=== PATIENT | female | born 1995 | race Caucasian/White ===

== ENCOUNTER 2020-01-31 11:03 | Emergency (ER) | payer SELFPAY ==
[2020-01-31 11:19] VITALS: BP 150/120; PULSE 101; RESP 18; TEMP 37; O2SAT 96
--- NOTE | 2020-01-31 11:40 | ED.GENADULT ---
HPI - General Adult General Chief complaint: Upper Respiratory Infection Stated complaint: sore throat Time Seen by Provider: 01/31/20 11:40 Source: patient and RN notes reviewed Mode of arrival: ambulatory Limitations: no limitations History of Present Illness HPI narrative: 24-year-old female presents with complaints of congestion and rhinorrhea for the past 7 days. Zyrtec without relief. Symptoms increased over the past 72 hours with sore throat, fatigue, and nausea without emesis. No high fevers, drooling, neck or throat swelling. Pain is bilateral. Hurts to swallow. Exacerbation factors consist of eating and drinking. Rhinorrhea and nasal congestion. No voice change. No abdominal pain. Tolerating liquids well. Denies chills, dyspnea, difficulty swallowing, jaw pain, dental pain, facial pain, foreign body sensation, and rash. LMP 01/04/20. Remains active. The patient reports she have not been diagnosed with COVID-19. The patient reports she is not waiting for the results of a COVID-19 lab test. Harriett reports she is tested weekly at her place of employment ([employer]) for COVID-19 in which she was NEGATIVE on 01/27/20 and is due to get tested today. The patient reports she do not have fever or weakness. The patient reports she do not have a new or worsening cough or shortness of breath. Denies chest pain. The patient reports she do not have any rhinorrhea, congestion, sore throat, loss of taste, nausea, vomiting, abdominal pain, and diarrhea. Tolerating po intake well. Denies recent traveling. Denies concerns for COVID-19 or exposures been home with limited outdoor exposure except for essential household needs, work, and return home. At this time, patient is not suspected of having COVID-19. Some parts of this dictation were generated by voice recognition software and may contain typographical and/or grammatical inaccuracies. Related Data Allergies Allergy/AdvReac Type Severity Reaction Status Date / Time No Known Drug Allergies Allergy Unknown Verified 01/31/20 11:31 Review of Systems Review of Systems: Narrative: CONSTITUTIONAL: Denies fever, chills, sweats. EYES: Denies visual changes, redness, discharge. ENT: Denies, otalgia. Complains of sore throat, congestion, rhinorrhea CARDIOVASCULAR: Denies chest pain, palpitations, edema. RESPIRATORY: Denies dyspnea, wheezing, cough. GASTROINTESTINAL: Denies abdominal pain, nausea, vomiting, diarrhea. GENITOURINARY: Denies dysuria, hematuria, abnormal discharge. SKIN: Denies rash or itching. MUSCULOSKELETAL: Denies acute back pain, joint pain, or myalgia. NEUROLOGIC: Denies numbness or focal weakness. PSYCHIATRIC: Denies anxiety or depression. All systems reviewed & are unremarkable except as noted in HPI and below. [facility] Past Medical History Medical History (Updated 02/01/20 @ 00:00 by Alecia Valverde) Strep tonsillitis [facility] History Surgical History (Updated 01/31/20 @ 11:52 by RIVERA Bejarano) No significant past surgical history Family History Family History (Updated 01/31/20 @ 11:52 by RIVERA Bejarano) Father Diabetes mellitus Hypertension Mother Alive and well Sibling Asthma Social History Social History (Updated 01/31/20 @ 12:14 by RIVERA Bejarano) Smoking status: Former smoker Tobacco type: cigarettes Second hand tobacco smoke exposure: Yes (Rarely) Smoking end date: 04/14/17 Alcohol intake: current Substance use: never Living arrangements: with family Occupation/Education: occupation Gender identity (if verbalized by the patient): Female Comments At time of signature, agree with nurse past medical, surgical, social, and family history. There is no relevant family history pertinent to the presenting complaint. Exam Narrative: Exam Narrative: GENERAL: This is a well-nourished, well-developed patient, in no apparent distress. Speaks in full sentences without def
[2020-01-31 11:50] VITALS: BP 135/90
== END 2020-01-31 12:02 | disposition home or self-care (01) ==
PROVIDERS: Emergency Provider Nurse Practitioner Family; PCP Internal Medicine
DX: J02.0 Streptococcal pharyngitis (principal)
CPT/HCPCS: 87804; 87880; 99213; G0463

== ENCOUNTER 2020-03-21 11:29 | Emergency (ER) | payer OTHER, SELFPAY ==
[2020-03-21 11:48] VITALS: BP 151/87; PULSE 77; RESP 18; TEMP 36.8; O2SAT 100
--- NOTE | 2020-03-21 12:17 | ED.URI ---
HPI - URI/Sore Throat General Chief Complaint: Upper Respiratory Infection Stated Complaint: Sore Throat Time Seen by Provider: 03/21/20 12:10 Source: patient and RN notes reviewed Mode of arrival: ambulatory Limitations: no limitations History of Present Illness HPI Narrative: 24 year old female who presents to [facility] care with complaints of 2-3 day duration of sore throat, nasal drainage,cough and fatigue. 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 Patient states that she had Strep throat in January and was treated at that time, states that she has seen ENT for evaluation but was told she doesn't have it frequent enough to get her tonsils removed. Patient's tonsils are red and enlarged with no exudates noted but pain stated with swallowing similar to previous strep throat episodes.Patient denies any shortness of breath, denies any known fever, or ear pain. MD elicited complaint: sore throat and nasal congestion Pertinent past history: seasonal allergies and other (strep) Onset (ago): day(s) (3) Consistency: progressively worsening Severity: moderate Pain scale (0-10): 4 Description of mucous: clear Able to tolerate fluids by mouth: Yes Exacerbating factors: swallowing Relieving factors: nothing Associated symptoms: nasal congestion, sore throat and cough Treatments prior to arrival: other (Benadryl) Related Data Home Medications Medication Instructions Recorded Confirmed cetirizine mg 03/21/20 montelukast mg 03/21/20 norethindrone-e.estradiol-iron tablet 03/21/20 [Aurovela Fe 1-20 (28)] Allergies Allergy/AdvReac Type Severity Reaction Status Date / Time No Known Allergies Allergy Unverified 01/04/19 17:43 Review of Systems Review of Systems: Narrative: CONSTITUTIONAL: Denies fever, chills, or sweats. EYES: Denies visual changes, redness, or discharge. ENT: Positive rhinorrhea, congestion, sore throat, no otalgia. CARDIOVASCULAR: Denies chest pain, palpitations, or edema. RESPIRATORY: Positive cough no dyspnea. GASTROINTESTINAL: Denies abdominal pain, nausea, vomiting, or diarrhea. GENITOURINARY: Denies dysuria or hematuria. SKIN: Denies rash or itching. MUSCULOSKELETAL: Denies back pain, joint pain, or myalgia. NEUROLOGIC: Denies headache, numbness, or weakness. PSYCHIATRIC: Denies anxiety or depression. 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 There is no relevant family history pertinent to the presenting complaint Exam Narrative: Exam Narrative: GENERAL: Well-appearing, well-nourished, and in no acute distress. HEAD: Normocephalic, atraumatic. EYES: PERRLA and EOMI. ENT: Nares red with clear rhinorrhea no epistaxis. Mucous membranes moist.TM's normal with good light reflex, throat red swollen uvula with tonsils red and enlarged, no lesions or exudates, some post nasal drainage noted. NECK: Supple. lymphadenopathy CHEST: Clear to auscultation. No respiratory distress.SAO2 100% on room air HEART: Regular rate and rhythm. No murmur heard. Normal peripheral pulses. ABDOMEN: Soft, nontender, nondistended, normal active bowel sounds.
== END 2020-03-21 12:40 | disposition home or self-care (01) ==
PROVIDERS: Emergency Provider Registered Nurse; PCP Internal Medicine
DX: J03.90 Acute tonsillitis, unspecified (principal); J06.9 Acute upper respiratory infection, unspecified
CPT/HCPCS: 87081; 87804; 87880; 99213; G0463

== ENCOUNTER 2025-01-19 06:43 | Emergency (ER) | payer OTHER, SELFPAY ==
--- NOTE | ~2025-01-19 | US_ITS ---
EXAMINATION: US OB <=14 wk fetus w TV DATE: 01/19/2025 10:45 INDICATION: Vaginal spotting during TECHNIQUE: Real-time pelvic ultrasound utilizing both a transvaginal and transabdominal probe was performed. The interpreting radiologist was not present for the study. COMPARISON: None. FINDINGS: The uterus measures 9.0 x 4.2 x 5.5 cm. There is an intrauterine gestational sac. A yolk sac and pole are identified. The mean sac diameter measures 1.5 cm and the crown rump length measures 5 mm, which correlates with an estimated gestational age of 6 weeks and 2 days. heart motion is geovani ntified measuring 110 beats per minute (bpm) by M-mode Doppler. The right ovary measures 3.0 x 3.0 x 1.9 cm. The left ovary measures 3.3 x 3.1 x 1.8 cm. Vascular flow is seen in both ovaries on color Doppler. There is prominent vascular flow at the peripheral thickened wall of a 2.3 cm centrally anechoic corpus luteum cyst in the left ovary. There is a 7 mm anechoic cyst/follicle in the right ovary along with a couple larger 1.5 cm hypoechoic likely complex cystic lesions in the right ovary which demonstrate a few internal punctate echogenic foci, one also with subtle thin echogenic internal septations but which are without internal vascular flow on color Doppler. There is no free fluid in the pelvis. IMPRESSION: 1. Single living fetus with heart rate of 110 bpm. 2. Gestational age by ultrasound of 6 weeks 2 day(s) +/- 3 day(s) with ultrasound estimated date of delivery (SIXTO) of 09/12/2025. 3. A couple 1.5 cm complex cystic lesions in the right ovary without evident solid vascularized soft tissue components which could represent hemorrhagic cysts or benign neoplasm such as ovarian dermoid or cystadenoma. Would consider continued attention on follow-up ultrasound imaging during and could consider further evaluation with CT or pre and postcontrast MRI at the conclusion of . Reviewed, dictated and finalized at location A. IMPRESSION: 1. Single living fetus with heart rate of 110 bpm. 2. Gestational age by ultrasound of 6 weeks 2 day(s) +/- 3 day(s) with ultraso und estimated date of delivery (SIXTO) of 09/12/2025. 3. A couple 1.5 cm complex cystic lesions in the right ovary without evident so lid vascularized soft tissue components which could represent hemorrhagic cysts or benign neoplasm such as ovarian dermoid or cystadenoma. Would consider cont inued attention on follow-up ultrasound imaging during and could cons ider further evaluation with CT or pre and postcontrast MRI at the conclusion o f .
--- OUTSIDE RECORDS SUMMARY | 2025-01-19 06:45 | XMS_ITS | Encounter Summary ---
Author Organization [facility] Address [address] [place] [address] Care Team Providers Care Service Support Representative Name Role Phone Josy Leroy DO Primary Care Provider Lia Carrero MD Primary Care Provider + Encounter Details Date Type Department Care Team (Late st Contact Info) Description 09/08/2024 [facility] Message Enc [facility] Multispecialty Care - [address] [place] [address] Josy Leroy DO Medication Social History Tobacco Use Types Packs/Day Years Used Date Smoking Tobacco: Never Passive Smoke Exposure: Past Smokeless Tobacco: Never Alcohol Use Standard Drinks/Week Comments Yes 0 (1 standard drink = 0.6 oz pur e alcohol) Once a month- Seltzers or wine PHQ-2 Answer Date Recorded Patient Health Questionnaire-2 Score 0 01/15/2024 Comments No Sex and Gender Information Value Date Recorded Sex Assigned at Not on file Legal Sex Female 7:41 AM CUTTER HAND Gender Identity Not on file Sexual Orientation Not on file documented as of this encounter Plan of Treatment Not on file documented as of this encounter Visit Diagnoses Not on filedocumented in this encounter Care Teams Service Support Representative Relationship Specialty Start Date End Date Josy Leroy DO PCP - General FAMILY PRACTICE 01/12/24 12/05/24 Lia Sy MD [address] [place] [id number] PCP - General FAMILY PRACTICE 12/06/24 documented as of this encounter
--- OUTSIDE RECORDS SUMMARY | 2025-01-19 06:45 | XMS_ITS | Encounter Summary ---
Author Organization [facility] Address [address] [place] [address] Care Team Providers Care Automatic Gluing Machine Operator Name Role Phone Josy Leroy DO Primary Care Provider Lia Carrero MD Primary Care Provider + Encounter Details Date Type Department Care Team (Late st Contact Info) Description 03/24/2024 Websandt Message Enc [facility] Multispecialty Care - [address] [place] [address] Josy Leroy DO Medication Social History Tobacco [...] on file Legal Sex Female 7:41 AM PATIENT ACCOUNT LIAISON Gender Identity Not on file Sexual Orientation Not on file documented as of this encounter Plan of Treatment Not on file documented as of this encounter Visit Diagnoses Not on filedocumented in this encounter Care Teams Automatic Gluing Machine Operator Relationship Specialty Start Date End Date Josy Leroy DO PCP - General FAMILY PRACTICE 01/12/24 12/05/24 Lia Sy MD [address] [place] [id number] PCP - General FAMILY PRACTICE 12/06/24 documented as of this encounter
--- OUTSIDE RECORDS SUMMARY | 2025-01-19 06:45 | XMS_ITS | Clinical Summary ---
Author Organization [facility] Address [address] [place] [address] Care Team Providers Care Specialist Field Engineer Name Role Phone Shyam Rebollar MD Primary Care Provider [phone] Source Comments [facility],non-owned Affiliates and Associated Physician Practices is amultiple site organization consisting of ambulatory clinics and hospital sitesin [place], [place], [place] and [place]. This disclosure is being madepursuant to the Care Everywhere program and may not contain all information available regarding this patient. Last updated 18.[facility] Allergies No known active allergies Medications * Be aware that medications may not be up to date on this document. Alwaysverify current medications with the patient. No known medications Social History Tobacco Use Types Packs/Day Years Used Date Smoking Tobacco: Never Smokeless Tobacco: Former Alcohol Use Standard Drinks/Week Comments Yes 0 (1 standard drink = 0.6 oz pur e alcohol) Comments No Sex and Gender Information Value Date Recorded Sex Assigned at Not on file Legal Sex Female 7:23 PM PHYSICIAN OPHTHALMOLOGIST Gender Identity Not on file Sexual Orientation Not on file Last Filed Vital Signs Vital Sign Reading Time Taken Comments Blood Pressure 120/76 06/30/2019 2:12 PM CDT Pulse 88 06/30/2019 2:12 PM CDT Temperature 37.2 C (99 F) 06/30/2019 2:12 PM CDT Respiratory Rate 16 06/30/2019 2:12 PM CDT Oxygen Saturation 97% 06/30/2019 2:12 PM CDT Inhaled Oxygen Concentration - - Weight 99.8 kg (220 lb) 06/30/2019 2:12 PM CDT Height 162.6 cm (5' 4) 06/30/2019 2:12 PM CDT Body Mass Index 37.76 06/30/2019 2:12 PM CDT Plan of Treatment Health Maintenance Due Date Last Done Comments HIV SCREENING 2012 HEPATITIS C SCREENING 06/02/2015 DTAP/TDAP/TD VACCINES (1 - Tdap) 2016 HEPATITIS B VACCINE (1 of 3 - 19+ 3-dose series) 2016 DEPRESSION SCREENING 04/14/2024 HPV VACCINE (1 - 3-dose SCDM series) 2024 COVID-19 VACCINE (1 - season) 2024 INFLUENZA VACCINE (#1) 2024 5, 04/18/2009, 01/26/2008, Additional history exists ZOSTER VACCINE (1 of 2) 2047 HIB VACCINE Aged Out No longer eligi ble based on patient's age to complete this topic MENINGOCOCCAL (Group B) VACCINE SHARED DECISION-MAKING Aged Out No longer eligible based on patient's age to complete this topic MENINGOCOCCAL GROUPS A/C/Y/W VACCINE Aged Out No longer eligible based on patient's age to complete this topic PNEUMOCOCCAL VACCINE Aged Out No long er eligible based on patient's age to complete this topic Insurance SELF PAY NO INSURANCE Member Subscriber Plan / Payer (Ef fective for All Dates) Name:Harriett Gómez Relation to Subscriber:Self Name:Harriett Gómez Payer ID:Not on file Group ID:Not on file Type:Self Pay Address: [place], [place] Care Teams Specialist Field Engineer Relationship Specialty Start Date End Date Shyam Rebollar MD [address] [address] PCP - General Internal Medicine 04/09/16
--- OUTSIDE RECORDS SUMMARY | 2025-01-19 06:45 | XMS_ITS | Clinical Summary ---
Author Organization [facility] Address [facility] access hospital[address] [place] [address] Care Team Providers Care Heat Reader Name Role Phone Lia Sy MD Primary Care Provider + Allergies No known active allergies Medications Vit-DSS-Fe Cbn-FA ( AD OR) Take 1 tablet by mouth daily. Active Active Problems Problem Noted Date Diagnosed Date Family history of sleep apnea 02/16/2024 Overview (02/16/2024): Father has CPAP. Daytime sleepiness 02/16/2024 Overview (02/16/2024): She reports generally feeling well rested in the morning however becomes more tired throughout the day and feels like she could use a nap after work however does not usually nap. She is unsure if she snores. She reports she falls asleep often while watching TV. She reports her father has obstructive sleep apnea and she would have to be on high alert when riding the car with him as he is falling asleep while driving. Assessment & Plan (02/16/2024 3:06 PM CASTING TRUCKER): Home sleep study ordered. This could be related to patient's subclinical hypothyroidism however we will evaluate with home sleep study first. Subclinical hypothyroidism 01/22/2024 Overview (02/16/2024): 01/22/2024 TSH: 4.020 Free T4: 1.07 Assessment & Plan (02/16/2024 2:58 PM CASTING TRUCKER): Discussed with patient that her mild elevation in TSH does not warrant medication therapy however if does increase, we may need to treat in the future. We also can order thyroid antibodies in the future. Class 3 severe obesity witho ut serious comorbidity with body mass index (BMI) of 40.0 to 44.9 in adult, unspecified obesity type 01/15/2024 Overview (04/12/2024): Visit 03/15/2024: Patient reports over the last several years despite dietary and exercise changes, she has failed to lose weight. She reports she does not eat many carbs and if anything snacks on vegetables or eats extra steak. Visit 04/12/2024: Patient reports that she tried Wellbutrin 150 mg oral for few days. She reports it made her very anxious and she had a panic attack and felt shaky and jittery. She sent a message via [employer] and was instructed to discontinue medication. She reports she does not remember exactly how many days she took it. She reports she started going to the gym daily approximately 6 days a week 3-4 weeks ago. She reports she has been using the treadmill and stairmaster combined for total of 30 minutes generally each time she goes in addition to doing ab workouts and working on some of the machines. Assessment & Plan (04/12/2024 8:19 AM CASTING TRUCKER): Recommended she continue activity and recommended moderate aerobic activity for at least 30 minutes daily. She is counseled on additional medications we can try however she would prefer to not try a medication at this time. She may benefit from dietary counseling/registered dietitian. She was given resource to look into [facility] which she can see if her insurance covers and provides remote nutrition counseling. I think this will benefit her because that she has increased her activity her nutrition needs have changed and she will likely need additional protein and other dietary changes. She is counseled and recommended to add legumes to her diet such as beans, chickpeas, lentils. She is recommended to get at least 25 g of dietary fiber daily. I am more than happy to place referral if she needs. Assessment & Plan (03/15/2024 8:21 AM CASTING TRUCKER): We discussed medication options to help with weight loss however agreed the patient may benefit from Wellbutrin as she also vapes nicotine tobacco. She will start taking Wellbutrin 150 mg XL once daily. She is counseled on potential side effects. She is counseled to immediately discontinue medication and notify our office if she has any adverse or concerning side effects. Assessment & Plan (02/16/2024 2:58 PM CASTING TRUCKER): After discussion with patient, I would like to assess with home sleep study for sleep breathing disorders. If negative, we can consider and discuss medication that can help patient lose weight. Nicotine dependence due to vaping tobacco produc t 01/15/2024 Overview (03/15/2024): She reports she has been vaping for 4-5 years and she vapes daily. She reports she has never quit entirely however has attempted to cut back on her use. She denies previously using cigarettes or chewing tobacco prior to vaping. Assessment & Plan (03/15/2024 8:20 AM CASTING TRUCKER): We discussed that using Wellbutrin medication can help cut cravings as we uses medication frequently with helping people quit smoking in addition to helping her hopefully lose weight. She will start taking Wellbutrin 150 mg XL once daily. She is counseled on potential side effects. She is counseled to immediately discontinue medication and notify our office if she has any adverse or concerning side effects. Resolved Problems Problem Noted Date Diagnosed Date Resolved Date Elevated blood pressure read ing in office without diagnosis of hypertension 03/15/20242023 Assessment & Plan (03/15/2024 8:21 AM CASTING TRUCKER): Diastolic blood pressure mildly elevated in office. Will continue to monitor as should decrease once patient quit smoking/vaping and loses weight. Immunizations Immunization Administration Dates Next Due Tdap (Boostrix) 06/28/2017 Family History Medical History Relation Comments Diabetes Father on Insulin Hyperlipidemia Father Hypertension Father Overweight Father Sleep Apnea Father Depression Half-sister 1 Alcohol Abuse Maternal Grandfather No Known Problems Maternal Grandmother No Known Problems Mother Aneurysm Paternal Grandfather Heart Disease Paternal Grandfather No Known Problems Paternal Grandmother Asthma Sister Eczema Sister Fraternal Relation Status Comments Father Alive Half-sister 1 Alive Half-sister 2 Alive Maternal Grandfather Maternal Grandmother Alive Mother Alive Paternal Grandfather Paternal Grandmother Alive Sister Alive Social History Tobacco Use Types Packs/Day Years Used Date Smoking Tobacco: Never Passive Smoke Exposure: Past Smokeless Tobacco: Never Tobacco Cessation:Counseling Given: Yes Alcohol Use Standard Drinks/Week Comments Yes 0 (1 standard drink = 0.6 oz pur e alcohol) Once a month- Seltzers or wine PHQ-2 Answer Date Recorded Patient Health Questionnaire-2 Score 0 01/15/2024 Comments No Sex and Gender Information Value Date Recorded Sex Assigned at Not on file Legal Sex Female 7:41 AM CASTING TRUCKER Gender Identity Not on file Sexual Orientation Not on file Last Filed Vital Signs Vital Sign Reading Time Taken Comments Blood Pressure 121/80 04/12/2024 7:42 AM CASTING TRUCKER Pulse 70 04/12/2024 7:42 AM CASTING TRUCKER Temperature 36.6 C (97.9 F) 04/12/2024 7:42 AM CASTING TRUCKER Respiratory Rate 18 04/12/2024 7:42 AM CASTING TRUCKER Oxygen Saturation 100% 04/12/2024 7:42 AM CASTING TRUCKER Inhaled Oxygen Concentration - - Weight 106.1 kg (234 lb) 04/12/2024 7:42 AM CASTING TRUCKER Height 162.6 cm (5' 4) 04/12/2024 7:42 AM CASTING TRUCKER Body Mass Index 40.17 04/12/2024 7:42 AM CASTING TRUCKER Plan of Treatment Health Maintenance Due Date Last Done Comments Annual Physical 2000 Hepatitis B Vaccines (1 of 3 - 19+ 3-dose series) 2016 PHQ-2 (Physician [place]) 04/14/2024 01/15/2024 HPV Vaccines (1 - 3-dose SCD M series) 2024 COVID-19 Vaccine (2023-2 5 season) 2024 Influenza Adult (#1) 2025 Cervical Cancer Screening Pa p Smear (Age 21 to 29) Every 3 Years 02/25/2025 02/25/2022 Cervical Cancer Screening 02/25/2025 DTaP, Tdap and Td Vaccines ( 2 - Td or Tdap) 06/29/2027 06/28/2017 Hepatitis C Completed 01/22/2024 Meningococcal B Vaccine Aged Out No l onger eligible based on patient's age to complete this topic Meningococcal Vaccine Aged Out No jeniffer jennifer eligible based on patient's age to complete this topic Pneumococcal Vaccine: Pediat rics (0 to 5 Years) and At-Risk Patients (6 to 49 Years) Aged Out No longer eligi ble based on patient's age to complete this topic RSV Immunizations Under 20 Months Aged Out No longer eligible based on patient's age to complete this topic Procedures Procedure Name Priority Date/Time Associated Diagnosis Comments HEPATITIS C ANTIBODY Routine 01/22/2024 7:17 AM CDT Encounter for hepatitis C screening test for low risk patient OUTSIDE CYTOPATH CERV/VAG INTERPRET (PAP) (SCAN ORDER) Routine 02/25/2022 12:00 AM CASTING TRUCKER from Last 3 Months or Most Recently Relevant to Health Maintenance Results * HEPATITIS C ANTIBODY (01/22/2024 7:17 AM CDT) HEPATITIS C AB NON-REACTI VE NON-REACT MATTHIAS 01/22/2024 6:39 PM CDT [facility] Comment: ANTIBODIES TO HCV NOT DETECTED. DOES NOT EXCLUDE THE POSSIBILITY OF EXPOSURE TO HCV. 01/22/2024 7:17 AM CDT Josy Leroy DO LABORATORY Final Result Performing Organization Address City/[facility]/ZIP Co de Phone Number [facility] [address] [place] [phone] * PAP SMEAR (02/25/2022 12:00 AM CASTING TRUCKER) 02/25/2022 [facility] Scanned SCANNING Final Resu lt [facility] from Last 3 Months or Most Recently Relevant to Health Maintenance Insurance [employer] Care Teams Heat Reader Relationship Specialty Start Date End Date Lia Sy MD [address] [place] [id number] PCP - General FAMILY PRACTICE 12/06/24
[2025-01-19 06:58] VITALS: BP 141/80; PULSE 97; RESP 18; TEMP 37; O2SAT 99
[2025-01-19 07:02] LABS: Hematocrit 40.0 % (37.0-47.0); Hemoglobin 13.1 g/dL (12.0-15.0); Immature Granulocyte Percent A 0.6 % (0-0.5); Lymphocytes Absolute Auto 2.94 K/mm3 (0.9-3.2); Mean Corpuscular HGB Conc 32.8 g/dl (32-36); Mean Corpuscular Hemoglobin 28.6 pg (26-34); Mean Corpuscular Volume 87.3 fl (80-100); Nucleated Red Blood Cells Absolute Auto 0.000 K/mm3 (0.0-0.012); Nucleated Red Blood Cells Perc 0.0 % (0.0-0.2); Platelet Count Result 409 k/mm3 (150-375); Red Blood Count 4.58 M/mm3 (4.2-5.4); White Blood Count 11.7 K/mm3 (4.5-10.0)
[2025-01-19 07:03] LABS: BEDSIDEPREGUCG Positive (Negative)
[2025-01-19 07:05] LABS: Add Urine Microscopic? YES; Appearance Urine Clear (Clear); Glucose Urine UA Negative (Negative); Leukocyte Esterase Ur Negative LEU/UL (Negative); Nitrate Urine Negative (Negative); Non Pathogenic Casts 0-2; Specific Grav Ur 1.015 (1.001-1.035)
[2025-01-19 07:09] VITALS: BP 133/76; PULSE 96; RESP 14; O2SAT 100
[2025-01-19 07:13] LABS: INR 1.0; Prothrombin Time 13.5 Seconds (11.1-14.7)
[2025-01-19 07:14] LABS: Partial Thromboplastin Time 29.7 Seconds (22.3-36.8)
[2025-01-19 07:16] LABS: Alanine Aminotransferase 34 U/L (6-35); Albumin Level 4.4 g/dL (3.5-5.1); Alkaline Phosphatase 66 U/L (38-126); Anion Gap 10 mmol/L (4-12); Aspartate Amino Transferase 34 U/L (14-36); Bilirubin,Total 0.3 mg/dL (0.2-1.3); Blood Urea Nitrogen 11 mg/dL (7-17); Calcium 9.5 mg/dL (8.4-10.2); Carbon Dioxide 22 mmol/L (22-30); Chloride 104 mmol/L (98-107); Estimated CRCL calculation 133 ml/min; Estimated Glomerular Filt Rate > 60; Glucose 103 mg/dL (65-110); Potassium 3.8 mmol/L (3.4-5.0); Sodium 136 mmol/L (137-145); Total Protein 8.0 g/dL (6.3-8.2)
--- NOTE | 2025-01-19 07:28 | ED_ITS ---
HPI - General Adult General Chief complaint: Vaginal Bleeding Stated complaint: 7weeks, spotting and cramping Time Seen by Provider: 01/19/25 06:59 History of Present Illness HPI narrative: 9-year-old female presents to the emergency department for evaluation for vaginal spotting that started this morning. Patient is approximately 7 weeks . Patient denies any current vaginal bleeding. Patient denies any lower abdominal pain. Patient denies any pain with urination. This is the patient's 1st . Related Data Home Medications ?Medication ?Instructions ?Recorded ?Confirmed ?Last Taken ?Type cetirizine 10 mg tablet mg 03/21/20 Unknown History montelukast 10 mg tablet mg 03/21/20 Unknown History norethindrone 1 mg-ethinyl tablet 03/21/20 Unknown Hi story estradiol 20 mcg (21)-iron 75 mg (7) tablet (Aurovela Fe 1-20 (28)) Allergies Allergy/AdvReac Type Severity Reaction Status Date / Time No Known Drug Allergies Allergy Unknown Verified 03/29/21 13:10 Review of Systems 2 Review of Systems: All systems reviewed & are unremarkable except as noted in HPI and below PMFSH Past Medical History Medical History (Updated 01/19/25 @ 11:52 by Filipe Verma MD) Seasonal allergies Strep pharyngitis Strep tonsillitis [facility] History Surgical History (Updated 03/29/21 @ 13:10 by Jose Guadalupe Blackman) No history of previous surgery No significant past surgical history Family History Family History (System 03/29/21 @ 13:10 by Jose Guadalupe Blackman) Father Diabetes mellitus Hypertension Mother Alive and well Sibling Asthma Social History Social History (System 03/29/21 @ 13:10 by Jose Guadalupe Blackman) Smoking status: Current some day smoker Tobacco type: cigarettes Second hand tobacco smoke exposure: Yes (Rarely) Smoking end date: 04/14/17 Alcohol intake: current Alcohol use details: rare Substance use: never Living arrangements: with family Occupation/Education: occupation Additional occupation/education comments: senior living Gender identity (if verbalized by the patient): Female Exam 2 Narrative: APPEARANCE: Well appearing, no pain, no distress, well-nourished. HEAD: normocephalic, atraumatic. EYES: PERRLA/EOMI, conjunctivae clear. NOSE: Normal no drainage EARS:TMS clear with good light reflex. THROAT: Pharynx clear, no exudate. NECK: Supple. No adenopathy, no masses. RESPIRATORY: Airway patent, respirations nonlabored. Clear to auscultation bilaterally, no rales, rhonchi, wheezing. CARDIOVASCULAR: Regular rate and rhythm without murmurs rubs or gallops. ABDOMINAL: Soft, nontender, nondistended, normal bowel sounds MUSCULOSKELETAL: Moves all extremities. Strength/ROM intact, No edema, No calf tenderness. NEURO: Alert. Cranial nerves II through XII intact. Good gait. Good coordination SKIN: Warm, dry. Normal Color Course Vital Signs Vital signs: Vital Signs Temperature 98.6 F 01/19/25 06:58 Pulse Rate 97 01/19/25 06:58 Respiratory Rate 18 01/19/25 06:58 Blood Pressure 141/80 H 01/19/25 06:58 Pulse Oximetry 99 01/19/25 06:58 Oxygen Delivery Room Air 01/19/25 06:58 Temperature 98 F 01/19/25 12:00 Pulse Rate 85 01/19/25 12:00 Respiratory Rate 16 01/19/25 12:00 Blood Pressure 123/71 01/19/25 12:00 Pulse Oximetry 100 01/19/25 12:00 Oxygen Delivery Room Air 01/19/25 06:58 Medical Decision Making MDM Narrative Medical decision making narrative: 29-year-old female presents to the emergency department for evaluation for vaginal spotting. Patient is approximately 7 weeks . Patient denies any lower abdominal pain denies any pain with urination. Patient is afebrile but does have a leukocytosis 11.7 hemoglobin of 13.1. INR 1.0. Patient has no acute abnormalities on her CMP patient's beta hCG was almost 30,000. Patient has no abdominal tenderness to palpation denies abdominal cramping. UA was negative for infection but did have some red blood cells is thought to be contamination from her vaginal bleeding. Patient's blood type is A positive so patient does not need to be treated with program. Low concern for ectopic at this time due to patient having no abdominal pain abdominal cramping. Patient was advised to have close follow-up with OB Gyne. Patient was updated the results of workup. All questions concerns were addressed patient was comfortable the plan for discharge and close follow-up. US showed- Gestational age by ultrasound of 6 weeks 2 day(s) +/- 3 day(s) with ultrasound estimated date of delivery (SIXTO) of 09/12/2025. A couple 1.5 cm complex cystic lesions in the right ovary without evident solid vascularized soft tissue components which could represent hemorrhagic cysts or benign neoplasm such as ovarian dermoid or cystadenoma. Would consider continued attention on follow-up ultrasound imaging during and could consider further evaluation with CT or pre and postcontrast MRI at the conclusion of . Differential Diagnosis Differential Diagnosis: Ectopic , threatened miscarriage, Vital Signs Vital Signs: Vital Signs Temperature 98.6 F 01/19/25 06:58 Pulse Rate 97 01/19/25 06:58 Respiratory Rate 18 01/19/25 06:58 Blood Pressure 141/80 H 01/19/25 06:58 Pulse Oximetry 99 01/19/25 06:58 Oxygen Delivery Room Air 01/19/25 06:58 Temperature 98 F 01/19/25 12:00 Pulse Rate 85 01/19/25 12:00 Respiratory Rate 16 01/19/25 12:00 Blood Pressure 123/71 01/19/25 12:00 Pulse Oximetry 100 01/19/25 12:00 Oxygen Delivery Room Air 01/19/25 06:58 Lab Data Lab results reviewed: Yes I reviewed the patient's lab results. 01/19/25 06:54 01/19/25 06:54 Labs: Lab Results 01/19/25 01/19/25 Range/Units 06:54 07:00 WBC 11.7 H (4.5-10.0) K/mm3 RBC 4.58 (4.2-5.4) M/mm3 Hgb 13.1 (12.0-15.0) g/dL Hct 40.0 (37.0-47.0) % MCV 87.3 (80-100) fl MCH 28.6 (26-34) pg MCHC 32.8 (32-36) g/dl RDW 13.5 (11.5-14.5) % Plt Count 409 H (150-375) k/mm3 MPV 9.3 (7.4-10.4) fl Immature Gran % (Auto) 0.6 H (0-0.5) % Neut % (Auto) 62.2 (45.5-73.1) % Lymph % (Auto) 25.2 (18.3-44.2) % [place] % (Auto) 8.1 (2.6-8.5) % Eos % (Auto) 3.5 (0-4.4) % Baso % (Auto) 0.4 (0.2-1.2) % Lymph # (Auto) 2.94 (0.9-3.2) K/mm3 [place] # (Auto) 0.9 H (0.1-0.6) K/mm3 Eos # (Auto) 0.4 H (0-0.3) K/mm3 Baso # (Auto) 0.1 (0.0-0.1) K/mm3 Abs Immat Gran (auto) 0.07 H (0.00-0.031) K/mm3 Absolute Neuts (auto) 7.3 H (1.3-6.7) K/mm3 Absolute Nucleated RBC 0.000 (0.0-0.012) K/mm3 Nucleated RBC % 0.0 (0.0-0.2) % PT 13.5 (11.1-14.7) Seconds INR 1.0 APTT 29.7 (22.3-36.8) Seconds Sodium 136 L (137-145) mmol/L Potassium 3.8 (3.4-5.0) mmol/L Chloride 104 (98-107) mmol/L Carbon Dioxide 22 (22-30) mmol/L Anion Gap 10 (4-12) mmol/L BUN 11 (7-17) mg/dL Creatinine 0.63 L (0.7-1.0) mg/dL Estim Creat Clear Calc 133 ml/min Estimated GFR > 60 (59 - ) Glucose 103 (65-110) mg/dL Calcium 9.5 (8.4-10.2) mg/dL Total Bilirubin 0.3 (0.2-1.3) mg/dL AST 34 (14-36) U/L ALT 34 (6-35) U/L Alkaline Phosphatase 66 (38-126) U/L Total Protein 8.0 (6.3-8.2) g/dL Albumin 4.4 (3.5-5.1) g/dL Beta HCG, Quant 75937.00 mIU/ML Urine Color Yellow (Yellow) Urine Appearance Clear (Clear) Urine pH 7.0 (5.0-9.0) Ur Specific [place] 1.015 (1.001-1.035) Urine Protein Negative (Negative) mg/dL Urine Glucose (UA) Negative (Negative) mg/dL Urine Ketones Negative (Negative) mg/dL Ur Blood (Man) Trace (Negative) Urine Nitrate Negative (Negative) Urine Bilirubin Negative (Negative) Urine Urobilinogen 0.2 (<2.0) mg/dL Leukocyte Esterase Rfl Negative (Negative) STAR/UL Urine RBC 3-5 H (0-2) /hpf Urine WBC 0-5 (0-3) /hpf Ur Squamous Epith Cells None seen (Few) /hpf Urine Bacteria None seen /hpf Urine Casts 0-2 POC Urine HCG, Qual Positive (Negative) Blood Type A Positive Antibody Screen Negative Screen Not Reportable Baby's Blood Type Not Reportable Baby's ROBE Not Reportable Doses of RhIg Required 0 Imaging Data Radiologist's impression: Impressions Obstetrics Ultrasound 01/19/25 11:18 IMPRESSION: 1. Single living fetus with heart rate of 110 bpm. 2. Gestational age by ultrasound of 6 weeks 2 day(s) +/- 3 day(s) with ultrasound estimated date of delivery (SIXTO) of 09/12/2025. 3. A couple 1.5 cm complex cystic lesions in the right ovary without evident solid vascularized soft tissue components which could represent hemorrhagic cysts or benign neoplasm such as ovarian dermoid or cystadenoma. Would consider continued attention on follow-up ultrasound imaging during and could consider further evaluation with CT or pre and postcontrast MRI at the conclusion of . ADDENDUM: 01/19/25 [id number] ADDENDUM: Impression should also include- 4. 7 x 6 x 3 mm anechoic subchorionic hematoma along the right inferior margin of the gestational sac. Dr. Yoon discussed these findings with Dr. Verma at 2:54 PM. Discharge Plan Discharge Clinical Impression: Vaginal bleeding before 22 weeks gestation Patient Disposition: Home Condition: Stable Instructions: Antibiotic Form Additional Instructions: Have close follow-up with OB Gyne regarding your bleeding during and also regarding the complex cystic lesions in the right ovary. You will need a repeat beta hCG approximately 2 days. Drink plenty of fluids. Tylenol for pain control. If you have any worsening symptoms then please call or return to the emergency department. Patient Language: Belarusian Prescriptions: No Action cetirizine [Zyrtec] 10 mg tablet 10 mg PO DAILY 60 Days Qty: 60 0RF ibuprofen 800 mg tablet 800 mg PO TID PRN (Reason: pain) Qty: 30 0RF ondansetron HCl [Zofran] 4 mg tablet 4 mg PO Q6H PRN (Reason: nausea and vomiting) Qty: 20 0RF penicillin V potassium 500 mg tablet 500 mg PO Q8H 10 Days Qty: 30 0RF fluticasone propionate [Allergy Relief (fluticasone)] 50 mcg/actuation spray,suspension 1 spray NASAL BID Qty: 16 0RF Rx Instructions: administer into each nostril cetirizine 10 mg tablet norethindrone-e.estradiol-iron [Aurovela Fe 1-20 (28)] 1 mg-20 mcg (21)/75 mg (7) tablet montelukast 10 mg tablet amoxicillin 875 mg tablet 875 mg PO Q12H Qty: 20 0RF dexamethasone [Decadron] 4 mg tablet 10 mg PO DAILY Qty: 2.5 0RF Rx Instructions: one dose for pain and swelling Follow-up/Referrals: Keith Morton MD [Physician, NEEDLEMAKER] Keturah,MD Shyam [Primary Care Provider] Stand Alone Forms: Work/School Release IP
[2025-01-19 07:59] LABS: Beta HCG Quantitative 29987.00 mIU/ML
[2025-01-19 12:00] VITALS: BP 123/71; PULSE 85; RESP 16; TEMP 36.6; O2SAT 100
--- NOTE | 2025-01-19 12:04 | PC.NURSE ---
Dr. Verma at bedside updating pt.
== END 2025-01-19 12:15 | disposition home or self-care (01) ==
PROVIDERS: Emergency Medicine; Emergency Provider Emergency Medicine; PCP Internal Medicine
DX: O20.8 Other hemorrhage in early pregnancy (principal); Z3A.01 Less than 8 weeks gestation of pregnancy
CPT/HCPCS: 36415; 76801; 76817; 80053; 81001; 81025; 84702; 85025; 85461; 85610; 85730; 86850; 86900; 86901; 99284

== ENCOUNTER 2025-01-28 14:50 | Outpatient (CLI) | payer OTHER, SELFPAY ==
--- OUTSIDE RECORDS SUMMARY | 2015-02-28 05:20 | XMS_ITS | Continuity of Care Document ---
Author Organization [facility] Address [address] [place] [address] Phone Care Team Providers Care Training And Development Specialist Name Role Phone Viviana Zhang MD Unavailable Unavailable Allergies, Adverse Reactions, Alerts Substance Reaction Status Criticality No Known Allergies Active No Inform ation Medications Medication Instructions Dosage Effective Dates (start - stop) Status Comments Epiduo 0.1 %-2.5 % topical gel apply by topical route every day to the affected area(s) after washing - Active Advance Directives Directive Yes / No Effective Date File Name No Information Encounters Encounter Description Practice Location Reason(s) For Visit Diagnoses Date Provider Providers Copied on Encounter [facility], [address], [place], [place], [id number] , tel: [phone] [facility] No Information 5 Vicente Michelle. [address] [place] [address], [id number] , . tel: [phone] [facility], [address], [place], [place], [id number] , tel: [phone] [facility] No Information 5 Rola Mcguire. [address] [facility], [place], [place], [id number] , . tel: [phone] Referring Provider: Maynor Canela, [address] [place] [address], [address] . tel:[phone] [facility], [address], [place], [place], [id number] , tel: [phone] [facility] PPD screening testRoutine infant or child health checkObesity, unspecified 5 Vicente Viviana. [address] [place], [place], [id number] , . tel: [phone] Referring Provider: Viviana Zhang, [address] [place] [address], [place], [address] . tel:[phone] [facility], [address], [place], [place], [id number] , tel: [phone] [facility] Routine or child health checkObesity, unspecifiedOther acneOther kyphoscoliosis and scoliosis 4 Vicente Viviana. [address] [place] [address], [id number] , . tel: [phone] Referring Provider: Viviana Zhang, [address] [place] [address], [place], [address] . tel:[phone] [facility], [address], [place], [place], [id number] , tel: [phone] [facility] No Information 3 Vicente Viviana. [address] [place] [address], [id number] , . tel: [phone] [facility], [address], [place], [place], [address] , tel: [phone] [facility] vomiting (chief complaint) Vomiting 3 Vicente Viviana. [address] [place] [address], [id number] , . tel: [phone] Referring Provider: Sy Brooks, [address] [place] [address], [place], [address] . tel:[phone] [facility], [address], [place], [place], [id number] , tel: [phone] [facility] Routine infant or child health checkRoutine or child health checkObesity, unspecifiedObesity, unspecifiedOther kyphoscoliosis and scoliosisRoutine infant or child health check 3 Vicente Michelle. [address] [place] [address], [address] [place] [address] , . tel: [phone] Referring Provider: Viviana Zhang, [address] [place] [address], [place], [address] . tel:[phone] [facility], [address], [place], [place], [id number] , tel: [phone] [facility] Routine or child health checkAttention deficit disorder without mention of hyperactivityOther kyphoscoliosis and scoliosisNeed for prophylactic vaccination and inoculation against varicellaRoutine or child health check 2 Vicente Michelle. [address] [place] [address], [id number] , . tel: [phone] Referring Provider: Viviana Zhang, [address] [place] [address], [place], [address] . tel:[phone] [facility], [address], [place], [place], [address] , tel: [phone] [facility] Cellulitis and abscess of upper arm and forearm 1 Vicente Michelle. [address] [place] [address], [id number] , . tel: [phone] Referring Provider: Viviana Zhang, [address] [place] [address], [address] . tel:[phone] [facility], [address], [place], [place], [id number] , tel: [phone] [facility] No Information 1 Vicente Michelle. [address] [place] [address], [address] [place] [address] , . tel: [phone] Referring Provider: Viviana Zhang [address] [place] [address], [address] . tel:[phone] [facility], [address], [place], [place], [id number] , tel: [phone] [facility] ATTN DEFIC NONHYPERACTSCOLIOSI S NEC 2-201 0 Vicente Viviana. [address] [facility], [facility], [place], [place], [id number] , . tel: [phone] [facility], [address], [place], [place], [id number] , tel: [phone] [facility] ANXIETY STATE NOS 5-201 0 Vicente Viviana. [address] [facility], [address], [place], [place], [id number] , . tel: [phone] [facility], [address], [place], [place], [id number] , tel: [phone] [facility] VAGINITIS NOS 2-200 9 Vicente Viviana. [address] [facility], [facility], [place], [place], [address] , . tel: [phone] [facility], [address], [place], [place], [id number] , tel: [phone] [facility] URINARY INCONTINENCE NOS 4-200 9 Vicente Viviana. [address] [facility], [facility], [place], [place], [address] , . tel: [phone] Family History Family Member Type Diagnosis Age At Onset No Information Immunizations Vaccine Date Status Comments Influenza, injectable, quadrivalent, preservative free, 3 yrs or older administered Source: New Immuniz ation Record meningococcal B, OMV, 2 dose schedule administered Source: New Immuniza tion Record meningococcal MCV4P administered Source: New Immunization Record meningococcal B, OMV, 2 dose schedule administered Source: New Immuniza tion Record Varicella administered Source: New Imm unization Record HPV administered Source: New Imm unization Record 71898 - HPV administered Source: Source Unspecified 11136 - Influenza administered Source: So urce Unspecified 92806 - Hepatitis_A administered Source: Source Unspecified 08520 - HPV administered Source: Source Unspecified 55490 - Influenza administered Source: So urce Unspecified 75275 - Hepatitis_A administered Source: Source Unspecified 45004 - Meningococcal_MCV4 administered S ource: Source Unspecified 02192 - Tetanus_Diptheria_Pertussis_Tda p administered Source: Source Unspe cified 15938 - Influenza administered Source: So urce Unspecified 96855 - Influenza administered Source: So urce Unspecified 06307 - MMR administered Source: Source Unspecified 49294 - Polio_OPV_IPV administered Source : Source Unspecified 33744 - MMR administered Source: Source Unspecified 37031 - DTaP_DTP_DT_PEDS, Hib administere d Source: Source Unspecified 19646 - Varicella administered Source: So urce Unspecified 11768 - Hepatitis_B administered Source: Source Unspecified 34502 - DTaP_DTP_DT_PEDS administered Gail rce: Source Unspecified 19099 - Polio_OPV_IPV administered Source : Source Unspecified 95252 - Hib administered Source: Source Unspecified 71942 - Hib administered Source: Source Unspecified 76820 - DTaP_DTP_DT_PEDS administered Gail rce: Source Unspecified 40501 - Polio_OPV_IPV administered Source : Source Unspecified 38238 - DTaP_DTP_DT_PEDS administered Gail rce: Source Unspecified 10975 - Polio_OPV_IPV administered Source : Source Unspecified 07432 - Hib administered Source: Source Unspecified 10517 - Hepatitis_B administered Source: Source Unspecified 99341 - Hepatitis_B administered Source: Source Unspecified Payers Payer name Insurance type Covered libertarian ID [employer] anthony lundberg(s) BCBS INACTIVE OUT OF STATE [id number] BCBS INACTIVE OUT OF STATE [id number] BCBS INACTIVE OUT OF STATE [id number] BC[employer] INACTIVE OUT OF STATE [id number] Social History Type Description Quantity Date Captured Comments Alcohol Use Details Unknown Caffeine Use Details Unknown Tobacco Use Status No Information Smoking Status No Information Sex Female Chief Complaint And Reason For Visit No Information Reason For Referral Reason For Referral No Information History Of Present Illness Encounter Date Complaint History Of Prese nt Illness No Information Functional Status Date Functional Assessmen t No Information Medications Administered Medication Instructions Dosage Effective Dates (start - stop) Status Comments No Drug Therapy Prescribed Instructions Date Instruction Additional Infor mation No Information Assessments Type Assessment Date No Information Patient Care Teams Name Effective Dates (start - stop) Status Members No Information
--- NOTE | ~2025-01-28 | US_ITS ---
EXAMINATION: US OB <=14 wk fetus w TV DATE: 01/28/2025 16:23 INDICATION: First trimester TECHNIQUE: Real-time pelvic ultrasound utilizing both a transvaginal and transabdominal probe was performed. The interpreting radiologist was not present for the study. COMPARISON: None. FINDINGS: The uterus measures 9.6 x 5.8 x 7.1 cm. There is an intrauterine gestational sac. A yolk sac and pole are identified. The crown rump length measures 1.4 cm, which is concordant within 2 days of the previously estimated gestational age of 8 weeks and 0 days. heart motion is identified measu ring 153 beats per minute (bpm) by M-mode Doppler.Persistent 12 x 4 mm small subchorionic hematoma along the caudal margin of the gestational sac The right ovary measures 3.0 x 2.9 x 1.6 cm. The left ovary measures 2.8 x 2.5 x 2.3 cm. . 2.0 cm thick-walled centrally anechoic likely corpus luteum cyst in the left ovary. Again seen are a couple very hypoechoic lesions in the right ovary measuring up to 1.5 cm in maximal diameter without evident internal vascular component on color Doppler. There is no free fluid in the pelvis. IMPRESSION: 1. Single living fetus with heart rate of 153 bpm. 2. [place]-rump length of 1.4 similar which is concordant within 2 days of the previously estimated gestational age by ultrasound of 8 weeks 0 day(s) with ultrasound estimated date of delivery (SIXTO) of 09/09/2025. 3. No significant change in a small subchorionic hematoma. 4. No change in a couple 1.5 cm very hypoechoic likely complex cystic lesions in the right ovary. See prior outside report for differential and follow-up recommendations. Reviewed, dictated and finalized at location A. IMPRESSION: 1. Single living fetus with heart rate of 153 bpm. 2. [place]-rump length of 1.4 similar which is concordant within 2 days of the pr eviously estimated gestational age by ultrasound of 8 weeks 0 day(s) with ultra sound estimated date of delivery (SIXTO) of 09/09/2025. 3. No significant change in a small subchorionic hematoma. 4. No change in a couple 1.5 cm very hypoechoic likely complex cystic lesions i n the right ovary. See prior outside report for differential and follow-up emily mmendations.
--- OUTSIDE RECORDS SUMMARY | 2025-01-28 14:56 | XMS_ITS | Clinical Summary ---
Author Organization [facility] Address [address] [place] [address] Care Team Providers Care Distribution Technician Name Role Phone Shyam Rebollar MD Primary Care Provider [phone] Source Comments [facility],non-owned Affiliates and Associated Physician Practices is amultiple site organization consisting of ambulatory clinics and hospital sitesin [place], [place], [place] and [place]. This disclosure is being madepursuant to the Care Everywhere program and may not contain all information available regarding this patient. 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
--- OUTSIDE RECORDS SUMMARY | 2025-01-28 14:57 | XMS_ITS | Clinical Summary ---
Author Organization [facility] Address [facility] [place] [address] Care Team Providers Care Rn Clinical Research Name Role Phone Lia Sy MD Primary [...] driving. Assessment & Plan (02/16/2024 3:06 PM COUNTY DIRECTOR WELFARE): Home sleep study ordered. This could be related to patient's subclinical hypothyroidism however we will evaluate with home sleep study first. Subclinical hypothyroidism 01/22/2024 Overview (02/16/2024): 01/22/2024 TSH: 4.020 Free T4: 1.07 Assessment & Plan (02/16/2024 2:58 PM COUNTY DIRECTOR WELFARE): Discussed with patient that her mild elevation [...] and jittery. She sent a message via [employer] and was instructed to discontinue medication. She [...] machines. Assessment & Plan (04/12/2024 8:19 AM COUNTY DIRECTOR WELFARE): Recommended she continue activity and recommended moderate aerobic activity for at least 30 minutes daily. She is counseled on additional medications we can try however she would prefer to not try a medication at this time. She may benefit from dietary counseling/registered dietitian. She was given resource to look into [facility] which she can see if her [...] needs. Assessment & Plan (03/15/2024 8:21 AM COUNTY DIRECTOR WELFARE): We discussed medication options to help with [...] effects. Assessment & Plan (02/16/2024 2:58 PM COUNTY DIRECTOR WELFARE): After discussion with patient, I would like [...] vaping. Assessment & Plan (03/15/2024 8:20 AM COUNTY DIRECTOR WELFARE): We discussed that using Wellbutrin medication can [...] 03/15/20242023 Assessment & Plan (03/15/2024 8:21 AM COUNTY DIRECTOR WELFARE): Diastolic blood pressure mildly elevated in office. [...] on file Legal Sex Female 7:41 AM COUNTY DIRECTOR WELFARE Gender Identity Not on file Sexual Orientation Not on file Last Filed Vital Signs Vital Sign Reading Time Taken Comments Blood Pressure 121/80 04/12/2024 7:42 AM COUNTY DIRECTOR WELFARE Pulse 70 04/12/2024 7:42 AM COUNTY DIRECTOR WELFARE Temperature 36.6 C (97.9 F) 04/12/2024 7:42 AM COUNTY DIRECTOR WELFARE Respiratory Rate 18 04/12/2024 7:42 AM COUNTY DIRECTOR WELFARE Oxygen Saturation 100% 04/12/2024 7:42 AM COUNTY DIRECTOR WELFARE Inhaled Oxygen Concentration - - Weight 106.1 kg (234 lb) 04/12/2024 7:42 AM COUNTY DIRECTOR WELFARE Height 162.6 cm (5' 4) 04/12/2024 7:42 AM COUNTY DIRECTOR WELFARE Body Mass Index 40.17 04/12/2024 7:42 AM COUNTY DIRECTOR WELFARE Plan of Treatment Health Maintenance Due Date Last Done Comments Annual Physical 2000 Hepatitis B Vaccines (1 of 3 - 19+ 3-dose series) 2016 PHQ-2 (Physician Cadott) 04/14/2024 01/15/2024 HPV Vaccines (1 - 3-dose [...] (PAP) (SCAN ORDER) Routine 02/25/2022 12:00 AM COUNTY DIRECTOR WELFARE from Last 3 Months or Most Recently Relevant to Health Maintenance Results * HEPATITIS C ANTIBODY (01/22/2024 7:17 AM CDT) HEPATITIS C AB NON-REACTI VE NON-REACT MATTHIAS 01/22/2024 6:39 PM CDT [facility] Comment: ANTIBODIES TO HCV NOT DETECTED. DOES NOT EXCLUDE THE POSSIBILITY OF EXPOSURE TO HCV. 01/22/2024 7:17 AM CDT Josy Leroy DO LABORATORY Final Result Performing Organization Address City/[facility] [address]/ZIP Co de Phone Number [facility] [address] [place] [phone], [phone] * PAP SMEAR (02/25/2022 12:00 AM COUNTY DIRECTOR WELFARE) 02/25/2022 [facility] Scanned SCANNING Final Resu lt [facility] from Last 3 Months or Most Recently Relevant to Health Maintenance Insurance [employer] Care Teams Rn Clinical Research Relationship Specialty Start Date End Date Lia Sy MD [address] [place] [address] [id number] PCP - General FAMILY PRACTICE 12/06/24
--- OUTSIDE RECORDS SUMMARY | 2025-01-28 14:57 | XMS_ITS | Encounter Summary ---
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
--- OUTSIDE RECORDS SUMMARY | 2025-01-28 14:57 | XMS_ITS | Data Portability ---
Author Organization [facility] [employer] Address [address] [facility] [address] [place] [address] Care Team Providers Care Temporary Receptionist Name Role Phone SHYAM REBOLLAR Primary Care Provider Assessment Encounter Date Assessment Date Assessment LastModified by Organization Details LastModified Time 05/15/2017 05/15/2017 Discussed potential complications and intervention options with the patient during this visit. Patient was instructed to increase room humidity and eat soft bland foods. Patient was instructed to gargle frequently with warm salt water. Raising the head of the bed, lozenges, and saline nasal spray were also recommended. Patient may take ibuprofen or acetaminophen as needed for pain control. If the issue does not improve in 24-48 hours, patient should return to the clinic for follow-up. Not available 05/15/2017 15:03:10 Plan of Treatment Reminders Order Date Submit Date Provider Last Modified By Organization Details Last Modified Time Details Appointments None recorded. Lab CBC 2017 018 [email or web address] [employer] [facility], [address], [address], [place], [address], 8 10:13:13 CMP, serum or plasma 2017 018 [email or web address] [employer] [facility], [address], [place], [address], 8 10:13:13 test, urine 2017 018 [place] [employer], [facility], [address] [place] [address] , [address], [place], [address], 8 17:42:15 TSH, serum or plasma 2017 018 [email or web address] [facility], [address], [address], [place], [address], 8 10:13:13 Referral ENT referral 2017 018 [email or web address] Montalvo MD, [address], [place], [address], 8 08:53:34 Procedures None recorded. Surgeries None recorded. Imaging CT, neck, soft tissue, w/o contrast 2017 018 [email or web address] [facility] Scheduling, [facility], [place], [address], 8 10:13:20 Medication Orders Augmentin 875 mg-125 mg tablet 2017 018 [id number], [address] , [place], [place], [id number], 8 15:37:13 Patient TargetsNo targets recorded. Patient Instructions Encounter Date Encounter Id Patient Instructions Last Modified By Organization Details Last Modified Time 05/15/2017 [id number] advised to lose weight [email or web address] Not available 05/15/2017 15:37:09 Please consult our office promptly if you develop any of the following symptoms: 1. A fever of at least 101 F or 38.4 C 2. Throat pain that is severe or does not start to improve within 5 to 7 days Call for an ambulance or go to the emergency room if you: 1. Have trouble breathing 2. Cannot control your saliva (drooling) due to difficulty swallowing 3. Have swelling of the neck or tongue 4. Cannot move your neck or have trouble opening your mouth Not available 05/15/2017 15:03:10 Reason for Referral ENT Referral for Tonsillitis Referring Physician: Nia Tyler, Internal Medicine, Encounter Date: 05/15/2017 Results Created Date Observation Date Name Description Value Unit Range Abnormal Flag Note LastModifiedBy Organization Detail LastModifiedTime 08/03/19 16 08/04/2015 lipid panel , serum cholesterol, total 142 mg/dL 125-17 0 normal Not Available [address] [address] [place], [address], 08/07/2015 13:29:20 08/03/19 16 08/04/2015 lipid panel , serum HDL cholesterol 47 mg/dL 36-76 normal Not Available [facility] [employer] [address] [address] [place], [address], 08/07/2015 13:29:20 08/03/19 16 08/04/2015 lipid panel , serum triglyceride s 57 mg/dL 40-136 normal Not Available [employer] [address] [place], [address], 08/07/2015 13:29:20 08/03/19 16 08/04/2015 lipid panel , serum LDL-choleste rol 84 mg/dL _(miguel c) <110 normal Senait able range <100 mg/dL for patie nts with CHD or diabe eyal and <70 mg/dL for diabe tic patie nts with known heart disea se. Not Available [facility] [employer] [address] [address] [place], [address], 08/07/2015 13:29:20 08/03/19 16 08/04/2015 lipid panel , serum chol/HDLC ratio 3.0 (calc ) < or = 5.0 normal Not Available [employer] [address] [address] [place], [address], 08/07/2015 13:29:20 08/03/19 16 08/04/2015 lipid panel , serum non HDL cholesterol 95 mg/dL _(miguel c) <120 normal Not Available [employer] [address] [address] [place], [address], 08/07/2015 13:29:20 08/03/19 16 08/04/2015 iron + total iron- derik ng capac ity (TIBC ), serum iron, total 55 mcg/d L 27-164 normal Not Available [address], [address], 08/07/2015 13:29:21 08/03/19 16 08/04/2015 iron + total iron- derik ng capac ity (TIBC ), serum iron binding capacity 410 mcg/d L 271-44 8 normal Not Available [address], [address], 08/07/2015 13:29:21 08/03/19 16 08/04/2015 iron + total iron- derik ng capac ity (TIBC ), serum % saturation 13 %_(ca lc) 8-45 normal Not Available [address], [address], 08/07/2015 13:29:21 08/03/19 16 08/04/2015 CMP, serum or plasm a glucose 96 mg/dL 65-99 normal Fasti ng refer ence inter velma Not Available [address], [address], 08/07/2015 13:29:23 08/03/19 16 08/04/2015 CMP, serum or plasm a urea nitrogen (BUN) 12 mg/dL 7-20 normal Not Available [address], [address], 08/07/2015 13:29:23 08/03/19 16 08/04/2015 CMP, serum or plasm a creatinine 0.75 mg/dL 0.50-1 .00 normal Not Available [address], [address], 08/07/2015 13:29:23 08/03/19 16 08/04/2015 CMP, serum or plasm a eGFR non-afr. iraqi 116 mL/mi n/1.7 3m2 > or = 60 normal Not Available [address], [address], 08/07/2015 13:29:23 08/03/19 16 08/04/2015 CMP, serum or plasm a eGFR 135 mL/mi n/1.7 3m2 > or = 60 normal Not Available [address], [address], 08/07/2015 13:29:23 08/03/19 16 08/04/2015 CMP, serum or plasm a BUN/creatini ne ratio NOT APPLIC ABLE (calc ) 6-22 Not Available [address], [address], 08/07/2015 13:29:23 08/03/19 16 08/04/2015 CMP, serum or plasm a sodium 140 mmol/ L 135-14 6 normal Not Available [address], [address], 08/07/2015 13:29:23 08/03/19 16 08/04/2015 CMP, serum or plasm a potassium 4.5 mmol/ L 3.8-5. 1 normal Not Available [address], [address], 08/07/2015 13:29:23 08/03/19 16 08/04/2015 CMP, serum or plasm a chloride 107 mmol/ L 98-110 normal Not Available [address], [address], 08/07/2015 13:29:23 08/03/19 16 08/04/2015 CMP, serum or plasm a carbon dioxide 24 mmol/ L 19-30 normal Not Available [address], [address], 08/07/2015 13:29:23 08/03/19 16 08/04/2015 CMP, serum or plasm a calcium 9.7 mg/dL 8.9-10 .4 normal Not Available [address], [address], 08/07/2015 13:29:23 08/03/19 16 08/04/2015 CMP, serum or plasm a protein, total 7.4 g/dL 6.3-8. 2 normal Not Available [address], [address], 08/07/2015 13:29:23 08/03/19 16 08/04/2015 CMP, serum or plasm a albumin 4.2 g/dL 3.6-5. 1 normal Not Available [address], [address], 08/07/2015 13:29:23 08/03/19 16 08/04/2015 CMP, serum or plasm a globulin 3.2 g/dL_ (calc ) 2.0-3. 8 normal Not Available [address], [address], 08/07/2015 13:29:23 08/03/19 16 08/04/2015 CMP, serum or plasm a albumin/glob ulin ratio 1.3 (calc ) 1.0-2. 5 normal Not Available [address], [address], 08/07/2015 13:29:23 08/03/19 16 08/04/2015 CMP, serum or plasm a bilirubin, total 0.5 mg/dL 0.2-1. 1 normal Not Available [address], [address], 08/07/2015 13:29:23 08/03/19 16 08/04/2015 CMP, serum or plasm a alkaline phosphatase 78 U/L 47-176 normal Not Available [address], [address], 08/07/2015 13:29:23 08/03/19 16 08/04/2015 CMP, serum or plasm a AST 17 U/L 12-32 normal Not Available [address], [address], 08/07/2015 13:29:23 08/03/19 16 08/04/2015 CMP, serum or plasm a ALT 17 U/L 5-32 normal Not Available [address], [address], 08/07/2015 13:29:23 08/03/19 16 08/04/2015 CBC w/ auto diff white blood cell count 9.0 thous and/u L 4.5-13 .0 normal Not Available [address], [address], 08/07/2015 13:29:24 08/03/19 16 08/04/2015 CBC w/ auto diff red blood cell count 4.81 jeremie on/uL 3.80-5 .10 normal Not Available [address], [address], 08/07/2015 13:29:24 08/03/19 16 08/04/2015 CBC w/ auto diff hemoglobin 12.2 g/dL 11.5-1 5.3 normal Not Available [address], [address], 08/07/2015 13:29:24 08/03/19 16 08/04/2015 CBC w/ auto diff hematocrit 37.5 % 34.0-4 6.0 normal Not Available [address], [address], 08/07/2015 13:29:24 08/03/19 16 08/04/2015 CBC w/ auto diff MCV 78.0 fL 78.0-9 8.0 normal Not Available [address], [address], 08/07/2015 13:29:24 08/03/19 16 08/04/2015 CBC w/ auto diff MCH 25.3 pg 25.0-3 5.0 normal Not Available [address], [address], 08/07/2015 13:29:24 08/03/19 16 08/04/2015 CBC w/ auto diff MCHC 32.4 g/dL 31.0-3 6.0 normal Not Available [address], [address], 08/07/2015 13:29:24 08/03/19 16 08/04/2015 CBC w/ auto diff RDW 14.4 % 11.0-1 5.0 normal Not Available [address], [address], 08/07/2015 13:29:24 08/03/19 16 08/04/2015 CBC w/ auto diff platelet count 395 thous and/u L 140-40 0 normal Not Available [address], [address], 08/07/2015 13:29:24 08/03/19 16 08/04/2015 CBC w/ auto diff MPV 8.5 fL 7.5-11 .5 normal Not Available [address], [address], 08/07/2015 13:29:24 08/03/19 16 08/04/2015 CBC w/ auto diff absolute neutrophils 5706 cells /uL 1800-8 000 normal Not Available [address], [address], 08/07/2015 13:29:24 08/03/19 16 08/04/2015 CBC w/ auto diff absolute lymphocytes 2340 cells /uL 1200-5 200 normal Not Available [address], [address], 08/07/2015 13:29:24 08/03/19 16 08/04/2015 CBC w/ auto diff absolute monocytes 585 cells /uL 200-90 0 normal Not Available [address] [address] [place], [address], 08/07/2015 13:29:24 08/03/19 16 08/04/2015 CBC w/ auto diff absolute eosinophils 315 cells /uL 15-500 normal Not Available [address] [place], [address], 08/07/2015 13:29:24 08/03/19 16 08/04/2015 CBC w/ auto diff absolute basophils 54 cells /uL 0-200 normal Not Available [address] [place], [address], 08/07/2015 13:29:24 08/03/19 16 08/04/2015 CBC w/ auto diff neutrophils 63.4 % normal Not Available [address] [place], [address], 08/07/2015 13:29:24 08/03/19 16 08/04/2015 CBC w/ auto diff lymphocytes 26.0 % normal Not Available [address] [place], [address], 08/07/2015 13:29:24 08/03/19 16 08/04/2015 CBC w/ auto diff monocytes 6.5 % normal Not Available [address] [address] [place], [address], 08/07/2015 13:29:24 08/03/19 16 08/04/2015 CBC w/ auto diff eosinophils 3.5 % normal Not Available [address] [address] [place], [address], 08/07/2015 13:29:24 08/03/19 16 08/04/2015 CBC w/ auto diff basophils 0.6 % normal Not Available [address] [address] [place], [address], 08/07/2015 13:29:24 08/03/19 16 08/04/2015 folat e, RBC folate, RBC 666 NG/mL _RBC >280 normal Not Available [address], [address], 08/07/2015 13:29:25 08/03/19 16 08/04/2015 T4, free, serum T4, free 1.0 NG/dL 0.9-1. 4 normal Not Available [address], [address], 08/07/2015 13:29:26 08/03/19 16 08/04/2015 TSH, serum or plasm a TSH 2.89 mIU/L normal Refer ence Range 1-19 Years 0.50- 4.30 Pregn wendy Range s First trime ster 0.26- 2.66 Secon d trime ster 0.55- 2.73 Third trime ster 0.43- 2.91 Not Available [address] [address] [place], [address], 08/07/2015 13:29:27 08/03/19 16 08/04/2015 T3, free, serum or plasm a T3, free 3.6 pg/mL 2.9-4. 6 normal Not Available [address], [address], 08/07/2015 13:29:28 08/03/19 16 08/04/2015 vitam in D, 25-hy droxy , total , serum vitamin D,25-oh,tota l,ia 22 NG/mL 30-100 low Vitam in D Statu s 25-OH Vitam in D: Defic iency : <20 ng/mL Insuf ficie ncy: 20 - 29 ng/mL Optim al: > or = 30 ng/mL For 25-OH Vitam in D testi ng on patie nts on D2-lovelace pplem entat ion and patie nts for whom quant itati on of D2 and D3 fract ions is requi red, the [facility] Assur eD(TM ) 25-OH VIT D, (D2,D 3), LC/MS /MS is recom chuck d: order code 99277 (filiberto ents >2yrs ). For more infor storm guzman on this test, go to: http: //donald monique ics.c om/fa q/FAQ 163 (This link is being provi ded for infor storm nal/e ducat ional purpo ses only. ) Not Available [facility] [address] [address] [place], [address], 08/07/2015 13:29:29 08/03/19 16 08/04/2015 HbA1c (hemo globi n A1c), blood hemoglobin A1C 5.6 %_of_ total _HGB <5.7 normal Accor ding to ADA guide lines , hemog lobin A1c <7.0% repre sents optim al contr ol in non-p regna nt diabe tic patie nts. Diffe rent metri cs may apply to speci fic patie nt popul atbrian s. Stand ards of Medic al Care in Diabe eyal-2 013. Diabe eyal Care. 2013; 36:s1 1-s66 For the purpo se of scree lars for the prese nce of diabe eyal <5.7% Consi stent with the absen ce of diabe eyal 5.7-6 .4% Consi stent with incre ased risk for diabe eyal (pred iabet es) >or=6 .5% Consi stent with diabe eyal This assay resul t is consi stent with a decre ased risk of diabe eyal. Curre ntly, no conse nsus exist s for use of hemog lobin A1c for diagn osis of diabe eyal for child luis. Not Available [employer] [facility] [address] [address], [place], [address], 08/07/2015 13:29:30 05/16/19 18 05/16/2017 pregn wendy test, urine HCG negati ve Not Available [employer], [address], [place], [address], 05/15/2017 15:34:28 05/19/19 18 05/19/2017 CT, abdom en + pelvi s, w/ contr ast No observ ation record ed. [email or web address] [facility] [place] [address] [facility] [address], [place], [address], 05/20/2017 11:53:20 Result Notes None recorded. Medical Equipment None Reported. Medications Name Sig Start Date Stop Date Status Note LastModified by Organization Details LastModified Time azithromyci n 250 mg tablet TAKE 2 TABLETS (500 MG) BY ORAL ROUTE ONCE DAILY FOR 1 DAY THEN 1 TABLET (250 MG) BY ORAL ROUTE ONCE DAILY FOR 4 DAYS active Not Available Not Available No t Available penicillin V potassium 500 mg tablet TAKE ONE TABLET BY MOUTH EVERY 8HR FOR TEN DAYS active Not Available Not Available No t Available amoxicillin 875 mg tablet TAKE 1 TABLET BY MOUTH EVERY 12 HOURS active Not Available Not Available No t Available dexamethaso ne 4 mg tablet TAKE 2.5 TABLETS BY MOUTH ONCE DAILY FOR PAIN AND SWELLING ONE TIME DOSE active Not Available Not Available No t Available norethindro ne acetate 5 mg tablet 05/15 completed Not Available Not Available Not Available fluticasone propionate 50 mcg/actuati on nasal spray,suspe nsion SHAKE AND USE ONE SPRAY IN EACH NOSTRIL TWICE DAILY active Not Available Not Available No t Available amoxicillin 875 mg-potassiu m clavulanate 125 mg tablet Take 1 tablet every 12 hours by oral route for 10 days. active Not Available Not Available No t Available Tri-Prevife m (28) 0.18 mg(7)/0.215 mg(7)/0.25 mg(7)-35 mcg tablet 05/15 completed Not Available Not Available Not Available nitrofurant oin monohydrate /macrocryst als 100 mg capsule active Not Available Not Available Not Available Mucinex DM 30 mg-600 mg tablet,exte nded release 12 hr Take 1 tablet every 12 hours by oral route. 2017 active Not Available Not Available Not Avai lable Vitals Date Recorded Heart rate Respiratory rate Body temperature Body weight Body mass index (BMI) Body height Systolic And Diastolic Provider Name and Address Organization Details Last Updated DateTime 8 93 /min 18 /min 97.3 [degF] 080713. 91 g 37.9 kg/m2 162.56 cm 142/91 mm[Hg] July [facility] 8 15:03:44 Social History Question Answer Notes LastModified by Organizat ion Details LastModified Time Tobacco Smoking Status Current Every Day Smoker Shyam Rebollar MD [address] [facility], [facility] [address], [place], [address], [facility] 06/30/2017 18:06:17 What Was The Date Of Your Most Recent Tobacco Screening? 06/30/2017 Information n ot available 11/04/2018 How Much Tobacco Do You Smoke? 1 PPD Information not available 06/30/2017 Sex: Unknown Functional Status Question Answer Note LastModified by Organization D etails LastModified Time What is your level of alcohol consumption? None Information not available 06/30/2017 Mental Status None recorded. Family History Nothing Reported. Medical History No medical history recorded. Gynecological HistoryNo gynecological history recorded. Obstetrics History GPAL:G 0 P 0 0 0 0 Past Encounters Encounter ID Performer Location Encounter Start Date Encounter Closed Date Diagnosis/Indication Diagnosis SNOMED-CT Code Diagnosis ICD10 Code Diagnosis IMO Codes Diagnosis Note [id number] Concha Lee NP [place] [facility] [address] [place] [address] 08/03/2015 10:04:51 08/16/2015 03:50:[id number] [facility] [address] [place] [address] 05/15/2017 14:48:23 05/15/2017 15:47:27 Tonsillitis 62341412 J03.90 Screening for malignant neoplasm of cervix 250155538 Z12.4 due this year Body mass index 30+ - obesity 975441273 Z68.39 Health Concerns Section Related Observation LastModified by Organization Detai ls LastModified Time None Recorded Concern Status LastModified by Organization Details LastModified Time None Recorded Advance Directives Directive None Recorded Payers Insurance Date Sequence Insurance Name Policy Number Policy Holliday Covered Member ID Holliday Member ID Guarantor Name 04/28/2017 1 [place] [id number] Harriett Simla [id number] Harriett Rico 03/29/2020 1 [employer] (POS) [id number] Josie Barros Rico [id number] Harriett Simla Notes Date Note Type Note Provider Name and Address Organization Details Recorded Time 05/15/2017 text/html strep throat dx 04/07/17 --- pain improved but swelling did notnow reports swollen tonsils, no pain, drooling at night.Denies difficulty breathing or swallowing Nia craig DC - [facility] 05/15/2017 15:37:18 OBGyn Episode No OBEpisode recorded.
--- OUTSIDE RECORDS SUMMARY | 2025-01-28 14:57 | XMS_ITS | Data Portability ---
Author Organization [facility] [place] [facility] Address [address] [place] [address] Assessment No assessment recorded. Plan of Treatment Reminders Order Date Submit Date Provider Last Modified By Organization Details Last Modified Time Details Appointments OB 1ST VISIT EST 2024 02:00P PATTY FLORES Not available Not available Not available Lab test, urine 2024 025 [email or web address] [facility], [facility] [place], [address], 01/24/2025 14:47:10 Referral None recorded. Procedures None recorded. Surgeries None recorded. Imaging None recorded. Medication Orders None recorded. Patient TargetsNo targets recorded. Patient InstructionsNo instructions recorded. Reason for Referral None Reported. Results Created Date Observation Date Name Description Value Unit Range Abnormal Flag Note LastModifiedBy Organization Detail LastModifiedTime 01/25/20 25 01/24/2025 pregn wendy test, urine HCG positi ve Not Available [facility] [address] [place], [address], 01/24/2025 12:15:42 Result Notes None recorded. Problems Name Problem SNOMED Code Status Onset Date Resolution Date Notes Provider Name and Address Organization Details Recorded Time Finding of pattern of menstrual cycle Active 2020 Other specified irregular menstruati on; Progress: Stable Added By: Jackeline Huddleston Add to Current Problems: YES ProblemSta tus: Current Not Available [facility] 20:03:53 Clinical finding Active 2020 Other general symptoms and signs; Progress: Stable Added By: Jackeline Huddleston Add to Current Problems: YES ProblemSta tus: Current Not Available [facility], [facility]–1983 20:03:54 Problem Notes None recorded. Procedures Surgical History Date Name Laterality Status Provider Name and Address Organization Details Recorded Time 02/13/2024 Date of Last Pap Smear completed [facility] (formerly [facility]) 01/24/2025 12:11:29 Imaging Results None recorded. Procedure Notes None recorded. Medical Equipment None Reported. Allergies No known drug allergies Medications Name Sig Start Date Stop Date Status Note LastModified by Organization Details LastModified Time amoxicillin 875 mg-potassium clavulanate 125 mg tablet TAKE 1 TABLET ORAL ROUTE EVERY 12 HOURS FOR 10 DAYS 01/24 completed Not Available Not Available Not Available Vitals Date Recorded Body height Body mass index (BMI) Body weight Systolic And Diastolic Provider Name and Address Organization Details Last Updated DateTime 01/24/2025 162.56 cm 39.3 kg/m2 059270.37 g 120/60 mm[Hg] [facility] 01/24/2025 12:15:27 Social History None recorded. Functional Status None recorded. Mental Status None recorded. Family History Nothing Reported. Medical History Condition Response Other Cancer N High Blood Pressure N Colon Cancer N Cytomegalovirus N Hyperthyroidism N Herpes (HSV) N Breast Cancer N Blood Transfusion N MRSA N Lung Cancer N Hypothyroidism N Depression N Incontinence N Panic Attacks N Neurological Disorder N Deep Vein Thrombosis N Anxiety Disorder N Autoimmune disease N Arthritis N Tuberculosis/Positive PPD N Shingles N Polycystic Ovarian Syndrome N Infertility N Cervical Cancer N Hematuria N Chlamydia N Varicosities N Stroke N Crohn's Disease N Seasonal allergies N Alzheimer's/Dementia N COPD/Emphysema N HPV/Genital Warts N Endometriosis N IBS (Irritable Bowel Syndrome) N History of Abnormal Pap N High Cholesterol N Liver Disease N Kidney Infection N Fibromyalgia N Ulcer N Kidney Disease N HIV N Gallbladder disease N Sickle Cell Disease/Trait N Von Willebrand disease N ADD/ADHD N Eating Disorder N Diabetes Mellitus (non-insulin dependent ) N Anemia N Ovarian Problems N Multiple Sclerosis N Gonorrhea N Frequent Urinary Tract infections N Osteopenia N Headaches/migraines N GERD (reflux) N Ovarian Cancer N Diabetes (insulin dependent) N Seizures/Epilepsy N Breast Problems N Fibroids N Asthma N Heart Attack N Lupus N Endometrial Cancer N Rubella N Blood Clotting Disorder N Bipolar Disorder N Diabetes Mellitus (during ) N Ulcerative Colitis N Hepatitis N Heart Disease N Pulmonary Embolism N RPR N Chicken Pox N Osteoporosis N Gynecological History Statement/Question Response Date of Last Colonoscopy Date of LMP 12/03/2024 Most Recent Bone Density HPV Vaccine Y Date of Last Pap Smear 02/13/2024 Most Recent Mammogram Current Control Method Obstetrics History GPAL:G 0 P 0 0 0 0 Past Encounters Encounter ID Performer Location Encounter Start Date Encounter Closed Date Diagnosis/Indication Diagnosis SNOMED-CT Code Diagnosis ICD10 Code Diagnosis IMO Codes Diagnosis Note [id number] PATTY PEDERSON [facility] [address] [place] [address] 01/24/2025 12:03:34 01/24/2025 15:09:13 test positive [id number] Z32.01 515395 [facility]HR 131 today on bedside US was not given due date by [facility]- records release singed to obtain records from [facility] - Routine antepartum care reviewed including visit schedule, ultrasound s, and labs. Care team reviewed. First trimester teaching provided. Reviewed Guide.-Pre vitamins daily-S/S of SAB reviewed and when to seek care Patient was counseled on purpose, process and potential outcomes of NIPT and carrier screening. We discussed benefits, limitation s and accuracy of screenings . Alternativ es including, no testing, were reviewed. Patient was given the opportunit y to ask questions, which were addressed thoroughly . After confirming understand ing, patient provided verbal consent for NIPT and carrier screening. Plan for NIPT at next visit. Health Concerns Section Related Observation LastModified by Organization Detai ls LastModified Time None Recorded Concern Status LastModified by Organization Details LastModified Time None Recorded Advance Directives Directive None Recorded Payers Insurance Date Sequence Insurance Name Policy Number Policy Holliday Covered Member ID Holliday Member ID Guarantor Name 01/24/2025 1 [facility] [place] Harriett Rico [id number] Harriett Gómez Notes Date Note Type Note Provider Name and Address Organization Details Recorded Time 01/24/2025 text/html Harriett is a 29yr old here today due to confirmation. Pt states she has ER visit @ [facility]. Pt was told she is about 6weeks with heart rate of 110 last Friday 01/19 at [facility] ER. Was seen in ER for light pink vaginal bleeding. Denies vaginal bleeding today. Was also told she had an ovarian cyst. Had quant HCG in ER at [facility] on Friday, pt states she does not know that result but did have HCG level done at [facility] was [id number] on 01/21. no prior pregnancies-- Denies family or personal history of anomalies/heart defects or genetic conditions Negative medical history, she is currently taking vitamins. PATTY PEDERSON [address] [facility], [place], [address], [facility] 01/24/2025 14:51:56 OBGyn Episode No OBEpisode recorded.
--- OUTSIDE RECORDS SUMMARY | 2025-01-28 14:57 | XMS_ITS | Encounter Summary ---
Author Organization [facility] Address [address] [place] [address] Care Team Providers Care Revenue Cycle Manager Name Role Phone Josy Leroy DO Primary Care Provider Lia Carrero MD Primary Care Provider + Encounter Details Date Type Department Care Team (Late st Contact Info) Description 03/24/2024 Invoice2got Message Enc [facility] - [address] [place] [address] Josy Leroy DO Medication Social History Tobacco [...] on file Legal Sex Female 7:41 AM [employer] Gender Identity Not on file Sexual Orientation Not on file documented as of this encounter Plan of Treatment Not on file documented as of this encounter Visit Diagnoses Not on filedocumented in this encounter Care Teams Revenue Cycle Manager Relationship Specialty Start Date End Date Josy Leroy DO PCP - General FAMILY PRACTICE 01/12/24 12/05/24 Lia Sy MD [address] [place] [id number] PCP - General FAMILY PRACTICE 12/06/24 documented as of this encounter
== END 2025-01-28 14:51 | disposition home or self-care (01) ==
PROVIDERS: PCP Internal Medicine
DX: N91.2 Amenorrhea, unspecified (principal)
CPT/HCPCS: 76801; 76817